=== PATIENT | female | born 1980 | race Two or more races ===

== ENCOUNTER 2024-08-11 10:00 | Emergency (ER) | payer OTHER ==
[~2024-08-11] VITALS: Ht 154.9 cm; Wt 53.1 kg
[2024-08-11] MEDS ORDERED: ASPIRIN 325 MG TABLET.EC PO STA (10:19)
[2024-08-11] MEDS ORDERED: LORazepam 1 MG TABLET PO ONE (10:30)
[2024-08-11 10:50] LABS: HEMATOCRIT 40.5 % (36.0-45.00); HEMOGLOBIN 13.9 g/dL (12.0-15.00); MEAN CELL VOLUME 87.8 fL (80.00-100.00); MEAN CORPUSCULAR HEMOGLOBIN 30.2 pg (27.00-32.0); MEAN CORPUSCULAR HGB CONC 34.4 g/dl (32.0-36.0); PLATELET COUNT 265 K/uL (150-450); RED BLOOD COUNT 4.61 M/uL (4.00-6.00); RED CELL DISTRIBUTION WIDTH 13.8 % (11.5-14.5)
[2024-08-11 11:19] LABS: INR 1.03; PARTIAL THROMBOPLASTIN TIME 28.3 SECONDS (22.0-34.0); PROTHROMBIN TIME 11.2 SECONDS (9.0-11.5)
[2024-08-11 12:21] LABS: CALCIUM 9.3 mg/dL (8.5-10.1); CREATININE SERUM 0.72 mg/dL (0.55-1.02); GFR 87.59; POTASSIUM 4.17 mEq/L (3.5-5.1)
== END 2024-08-11 14:09 | disposition home or self-care (01) ==
LOC: ER 10:02
PROVIDERS: Emergency Medicine
DX: F32.A Depression, unspecified (principal)